=== PATIENT | female | born 1960 | race Caucasian/White ===

== ENCOUNTER 2017-12-13 10:51 | Emergency (ER) | payer BC, OTHER ==
[2017-12-13 12:53] VITALS: BP 118/78
--- NOTE | 2017-12-13 13:07 | UC ---
UC General HPI - HPI Summary HPI Summary: pt is c/o pain in her L low back that goes into her L hip and thigh at times. no injury, saddle anesthesia, abdominal pain or weak extremities. began day after heavy activity. symptoms x 1 day. pt notes recurrent issue for her. - History of Current Complaint Chief Complaint: UCBackPain Stated Complaint: BACK PAIN Time Seen by Provider: 12/13/17 12:49 Hx Obtained From: Patient Onset/Duration: Gradual Onset Onset Severity: Moderate Current Severity: Moderate Pain Intensity: 5 Aggravating: movement Alleviating: lessens with IB Associated Signs & Symptoms: Positive: Back Pain. Negative: Abdominal Pain, Fever, Weakness - Allergy/Home Medications Allergies/Adverse Reactions: Allergies Allergy/AdvReac Type Severity Reaction Status Date / Time cephalexin [From Keflex] Allergy Swelling Verified 12/13/17 12:42 Of Face,Lips,& Throat Penicillins Allergy Unknown Verified 12/13/17 12:42 Reaction Details Home Medications: Home Medications Amphetamine MIXED SALTS TAB* [Adderall TAB*] 30 mg BID 12/13/17 [History Confirmed 12/13/17] Bupropion XL* [Wellbutrin XL *] 300 mg DAILY 12/13/17 [History Confirmed ] FLUoxetine CAP* [Prozac CAP*] 20 mg DAILY 12/13/17 [History Confirmed 12/13/17] LORazepam TAB(*) [Ativan 1 MG TAB (*)] 2 mg DAILY PRN 12/13/17 [History Confirmed 12/13/17] Montelukast Sodium TAB* [Singulair 10 MG TAB*] 10 mg DAILY 12/13/17 [History Confirmed 12/13/17] PMH/Surg Hx/FS Hx/Imm Hx - Additional Past Medical History Additional PMH: ADHD, "mood disorder" - Surgical History Surgical History: Yes Surgery Procedure, Year, and Place: TONSILS AGE 20. right shoulder - Family History Known Family History: Positive: None, Hypertension - Social History Occupation: Unemployed Lives: Alone Alcohol Use: Weekly Alcohol Amount: 1 glass of wine daily Substance Use Type: None Smoking Status (MU): Never Smoked Tobacco Have You Smoked in the Last Year: No - Immunization History Most Recent Influenza Vaccination: Fall 2014 Vaccination Up to Date: Yes Review of Systems Constitutional: Negative Skin: Negative Eyes: Negative ENT: Negative Respiratory: Negative Cardiovascular: Negative Gastrointestinal: Negative Genitourinary: Negative Motor: Negative Neurovascular: Negative Musculoskeletal: Other: - Low back pain Neurological: Negative Psychological: Negative Is Patient Immunocompromised?: No All Other Systems Reviewed And Are Negative: Yes Physical Exam Triage Information Reviewed: Yes Appearance: Well-Appearing Vital Signs: Initial Vital Signs Temp 97.8 F 12/13/17 12:43 Pulse 66 12/13/17 12:43 Resp 16 12/13/17 12:43 BP 118/78 12/13/17 12:43 Pulse Ox 98 12/13/17 12:43 Vital Signs Reviewed: Yes Eyes: Positive: Conjunctiva Clear ENT: Positive: Normal ENT inspection Neck: Positive: Supple, Nontender, No Lymphadenopathy Respiratory: Positive: Lungs clear, Normal breath sounds Cardiovascular: Positive: RRR, No Murmur Abdomen Description: Positive: Nontender, No Organomegaly, Soft Bowel Sounds: Positive: Present Musculoskeletal: Positive: Other: - Back: decreased lordosis in lumbar region. spine non tender. paraspinal mm spasm/tenderness L paraspinal mm lumbar region. ROM intact. s/v/m intact x4 with 5/5 strength and 2+ relfexes x4. no saddle anesthesia. + straight leg raise on L only and L sciatic notch is tender. Neurological: Positive: Alert Psychological: Positive: Age Appropriate Behavior Skin Exam: Normal Course/Dx - Course Course Of Treatment: exam c/w low back spasm and sciatica. no acute abdomen, cauda equina or concern for infection - Differential Dx - Multi-Symptom Provider Diagnoses: Low back pain. sciatica Discharge - Discharge Plan Condition: Stable Disposition: HOME Prescriptions: Cyclobenzaprine TAB* [Flexeril 10 MG TAB*] 10 mg PO TID 3 Days #10 tab Naproxen [Naprosyn] 500 mg PO BID 7 Days #14 tablet Patient Education Materials: Sciatica (ED), Back Pain (ED) Referrals: Araceli Almonte MD [Primary Care Provider] - 5 Days
== END 2017-12-13 13:20 | disposition home or self-care (01) ==
LOC: UCCORT 10:51
DX: M54.5 Low back pain (principal); M54.30 Sciatica, unspecified side; F90.9 Attention-deficit hyperactivity disorder, unspecified type
CPT/HCPCS: 99212; G0463

== ENCOUNTER 2019-10-29 19:22 | Emergency (ER) | payer BC, OTHER ==
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
--- OUTSIDE RECORDS SUMMARY | 2019-10-29 20:01 | XMS REPORT | Summary of Care ---
:1960 Author Organization [facility] Address [address] [facility] [place] [address] Care Team Providers Name Role Phone Santino Myrick [facility] Primary Care Provider Reason for Visit Reason Comments Hip Pain left Encounter Details Date Type Department Care Team Description 09/20/2019 Office Visit [facility] - Angel Chapman, Primary osteoarthritis Nia MILLER of left hip (Primary [address] [place] [address]) [address] [place] [address] [place] [address] [phone] Allergies Active Allergy Reactions Severity Noted Date Comments Keflex Rash 09/05/2019 Penicillins Rash 09/05/2019 documented as of this encounter (statuses as of 10/03/2019) Medications Medication Sig Dispensed Refills Start Date End Date Status Amphetamine-Dextroamphet Take 30 mg by 0 Active amine 30 MG Oral Tab mouth. buPROPion XL (WELLBUTRIN TAKE 3 TABLETS 0 02/26/2019 Active XL) 150 MG Oral TABLET BY MOUTH EVERY SR 24 HR 24 hour tablet DAY IN THE MORNING fluticasone (FLONASE) 50 Myrtle 1 Myrtle in 0 Active MCG/ACT Nasal Suspension nose. [...] THREE Tab TIMES DAILY NEEDED (muscle spasm). documented as of this encounter (statuses as of 10/03/2019) Active Problems Problem Noted Date Primary osteoarthritis of left hip 09/20/2019 documented as of this encounter (statuses as of 10/03/2019) Social History Tobacco Use Types Packs/Day Years [...] Sign Reading Time Taken Comments Blood Pressure - - Pulse - - Temperature - - Respiratory Rate 16 09/20/2019 10:34 AM EST Oxygen Saturation - - Inhaled Oxygen Concentration - - Weight 93.4 kg (206 lb) 09/20/2019 10:34 AM EST Height 171.5 cm (5' 7.5") 09/20/2019 10:34 AM EST Body Mass Index 31.79 09/20/2019 10:34 AM EST documented in this encounter Progress Notes Angel Chapman MD - 09/20/2019 10:30 AM EST PATIENT: Francisca Santana : 1960 DATE OF SERVICE: 09/20/2019 REFERRING PROVIDER: Chelsea Mcgee PCP: Santino Myrick V Chief Complaint Patient presents with Hip Pain left HPI: Francisca Santana is a 59-y.o. female with complaint of left hip pain. The pain is 4/10 at rest, and 10/10 at its worst. The pain has been present for about a year . It is located groin, lateral thigh and buttock . It is worse with weight bearing, stairs and activity. Francisca Santana has tried tylenol, NSAID's and activity modification, these are no longer helping. Physical therapy and/or home exercise not helping . The pain is interfering with daily activities and affecting quality of life. Pain Assessment Location of pain: left hip Symptoms: Locking;Numbness;Tingling;Popping;Throbbing;Aching;Burning;Buckling Timing of Pain: Constant Relieving Factors: Rest;Heat;Other Aggravating Factors: Rising after sitting;Walking;Bending What time of day is your pain worse?: Morning Pain Severity at Rest: 4 Pain Score during activity: 10 Result of Injury: No Allergies Allergen Reactions Keflex Rash Penicillins Rash Current Outpatient Medications Medication Sig Amphetamine-Dextroamphetamine 30 MG Oral Tab Take 30 mg by mouth. buPROPion XL (WELLBUTRIN XL) 150 MG Oral TABLET SR 24 HR 24 hour tablet TAKE 3 TABLETS BY MOUTH EVERY DAY IN THE MORNING cyclobenzaprine (FLEXERIL) 10 MG Oral Tab Take 1 Tab by mouth THREE TIMES DAILY NEEDED (muscle spasm). fluticasone (FLONASE) 50 MCG/ACT Nasal Suspension Myrtle 1 Myrtle in nose. montelukast (SINGULAIR) 10 MG Oral Tab Take 10 mg by mouth. naltrexone (REVIA) 50 MG Oral Tab Take 50 mg by mouth. naproxen (NAPROSYN) 250 MG Oral Tab Take 250 mg by mouth. pseudoephedrine (SUDAFED SA) 120 MG Oral TABLET SR 12 HR Take 120 mg by mouth. tramadol (ULTRAM) 50 MG Oral Tab Take 1 Tab by mouth EVERY SIX HOURS NEEDED (pain). Max Daily Amount: 200 mg. trazodone (DESYREL) 150 MG Oral Tab Take 150 mg by mouth. No current facility-administered medications for this visit. Past Medical History: Diagnosis Date Shoulder fracture Past Surgical History: Procedure Laterality Date CT SHOULDER SURG PROC UNLISTED A comprehensive review of systems was done and negative except for that noted in the HPI Social History Socioeconomic History Marital status: Spouse name: Not on file Number of children: Not on file Years of education: Not on file Highest education level: Not on file Occupational History Not on file Social Needs Financial resource strain: Not on file Food insecurity: Worry: Not on file Inability: Not on file Transportation needs: Medical: Not on file Non-medical: Not on file Tobacco Use Smoking status: Former Smoker Packs/day: 0.00 Smokeless tobacco: Never Used Substance and Sexual Activity Alcohol use: Not on file Drug use: Not on file Sexual activity: Not on file Lifestyle Physical activity: Days per week: Not on file Minutes per session: Not on file Stress: Not on file Relationships Social connections: Talks on phone: Not on file Gets together: Not on file Attends gnosticist service: Not on file Active member of club or organization: Not on file Attends meetings of clubs or organizations: Not on file Relationship status: Not on file Intimate partner violence: Fear of current or ex partner: Not on file Emotionally abused: Not on file Physically abused: Not on file Forced sexual activity: Not on file Other Topics Concern Not on file Social History Narrative Not on file History reviewed. No pertinent family history. Family history is reviewed and unremarkable PHYSICAL EXAMINATION: Resp 16 | Ht 5' 7.5" (1.715 m) | Wt 206 lb (93.4 kg) | BMI 31.79 kg/m Body mass index is 31.79 kg/m. Awake, alert, oriented Bilateral hips: No peritroch tenderness. Pos pain with internal rotation. Pos antalgic gait. Neg trendelenburg. Limb lengths grossly equal. Pos stinchfield. ROM 0-90 flexion, 15 internal rotation, 30 external rotation, 35 abduction, 15adduction, 5/5 DF, 5/5PF, sensate saphenous, sural, deep peroneal, superficial peronea, and plantar nerves + 2 dorsalis pedis and + 2 posterior tibial pulses. No noted lymphedema no pain with range of motion of lumbar spine. Straight leg raise neg . Bilateral knees are free of crepitus. Full range of motion. Patella tracks normally. Ligaments stable. Pain free with range of motion. No swelling. No joint line tenderness..neutral alignement. RADIOLOGIC STUDIES: I Have personally reviewed the Imaging, the report , and reviewed with the patinet, and it shows Left hip with joint space narrowing, near bone on bone , sclerosis, spurring, consistent with Osteoarthritis. No results found for: GLYCO ASSESSMENT: ICD-9-CM ICD-10-CM 1. Primary osteoarthritis of left hip 715.15 M16.12 PLAN: We discussed the natural history of osteoarthritis. She understands that it is a degenarative condition that is likely to worsen and that currently we have no treatments that slow or reverse the course. Conservative options for symptomatic treatment were discussed along with total hip arthroplasty. At this time She is going to continue with symptomatic treatment and call when She is ready for further intervention. Surgical and non surgical options where discussed with the patient, any further conservative therapy would be futile. The risks, benefits, and alternatives of surgery were discussed with the patient. We discussed risks to include, but not be limited to, anesthesia risks, infection, blood clots, nerve and vascular injury, leg length discrepancy, dislocation, need for further procedures, and .The patient would like to proceed with surgery. She wants to wait until summer. She will call to schedule She would like to try a hip injection to get through the winter. Author: Angel Chapman MD 09/20/2019 10:38 Portions of this note were made with voice recognition software documented in this encounter Plan of Treatment Date Type Specialty Care Team Description 11/08/2019 Office Visit Orthopedics Angel Chapman MD [address] [place] [address] [phone] Health Maintenance Due Date Last Done Comments DTaP/Tdap/Td Vaccines (1 - Tdap) 1973 DEPRESSION SCREENING 1974 HIV SCREENING 1977 DIABETES SCREENING 1980 LIPID DISORDER SCREENING 1980 PAP SMEAR 1983 HEPATITIS C SCREENING 2002 MAMMOGRAM (SCREENING) 2002 Colonoscopy 2012 ZOSTER IMMUNIZATION SERIES (1 of 2) 2012 INFLUENZA VACCINE (#1) 2019 HEPATITIS A IMMUNIZATION SERIES Aged Out No longer eligible based on patient's age to complete this topic HPV IMMUNIZATION SERIES Aged Out No longer eligible based on patient's age to complete this topic MENINGOCOCCAL VACCINE IMM Aged Out No longer eligible based on patient's age to complete this topic PNEUMOCOCCAL 0-64 YRS Aged Out No longer eligible based on patient's age to complete this topic documented as of this encounter Results Not on filedocumented in this encounter Visit Diagnoses Diagnosis Primary osteoarthritis of left hip Primary localized osteoarthrosis, pelvic region and thigh documented in this encounter Insurance Payer Benefit Plan / Subscriber ID Effective Dates Phone Address Type Group [employer] xxxxxxxxxxxx 2018-Present [employer] documented as of this encounter
[2019-10-29 20:29] VITALS: BP 123/78
--- NOTE | 2019-10-29 20:51 | UC ---
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 Since then, she has had progressive pain in the left buttock and low back, with increased difficulty walking. All movement causes pain, and she has a sense of muscle weakness on the left. Steps are difficult. She believes that the pain is from muscle spasm; has an appointment with her PMD tomorrow, and upcoming visit with Dr. Salazar. Hx of degenerative spinal arthritis in addition to the above. Had a massage tonight, and pain was worse when she got off of the exam table. She is not regularly using lorazepam, and the time she tried it, it was not effective as a muscle relaxant. No loss of bowel or bladder function. - History Of Current Complaint Chief Complaint: UCLowerExtremity Stated Complaint: LEFT SIDE AND HIP PAIN Time Seen by Provider: 10/29/19 20:30 Hx Obtained From: Patient Onset/Duration: Gradual Onset, Lasting Hours, Lasting Weeks, Worse Since - past 2 days Timing: Constant Severity Initially: Moderate Severity Currently: Moderate Pain Intensity: 10 Location: Diffuse - left low back and gluteal area. Character Of Pain: Aching, Spasmodic, Stiffness Aggravating Factor(s): Movement, Weight Bearing Alleviating Factor(s): Rest Associated Signs And Symptoms: Negative: Fever, Syncope - Risk Factors Septic Arthritis Risk Factor: Negative - Allergies/Home Medications Allergies/Adverse Reactions: Allergies Allergy/AdvReac Type Severity Reaction Status Date / Time cephalexin [From Keflex] Allergy Swelling Verified 10/29/19 20:13 Of Face,Lips,& Throat Penicillins Allergy Unknown Verified 10/29/19 20:13 Reaction Details Home Medications: Home Medications Aspirin/Caffeine [Anacin 400-32 mg Tablet] 1 each PO PRN 10/29/19 [History] Naproxen [Naprosyn] 500 mg PO BID PRN 10/29/19 [History] PMH/Surg Hx/FS Hx/Imm Hx - Additional Past Medical History Additional PMH: degenerative arthritis Psychological History: Depression, Post Traumatic Stress Disorder - Surgical History Surgical History: Yes Surgery Procedure, Year, and Place: TONSILS AGE 20. right shoulder. D&C - Family History Known Family History: Positive: Hypertension, Other - negative for osteoporosis - Social History Occupation: Employed Full-time Alcohol Use: Daily Alcohol Amount: 1 glass of wine daily Substance Use Type: None Smoking Status (MU): Never Smoked Tobacco Have You Smoked in the Last Year: No - Immunization History Most Recent Influenza Vaccination: Fall 2014 Vaccination Up to Date: Yes Review of Systems All Other Systems Reviewed And Are Negative: Yes Constitutional: Positive: Negative Skin: Positive: Negative Eyes: Positive: Negative ENT: Positive: Negative Respiratory: Positive: Negative Cardiovascular: Positive: Negative Gastrointestinal: Positive: Negative Genitourinary: Positive: Negative Motor: Positive: Decreased ROM Neurovascular: Positive: Negative Musculoskeletal: Positive: Arthralgia, Myalgia Neurological: Positive: Negative Psychological: Positive: Negative Is Patient Immunocompromised?: No Physical Exam Triage Information Reviewed: Yes Appearance: Ill-Appearing, Pain Distress - moderate, Obese, Other: - Cane assisted gait, antalgic gait. Vital Signs: Initial Vital Signs Temp 98.3 F 10/29/19 20:18 Pulse 89 10/29/19 20:18 Resp 17 10/29/19 20:18 BP 123/78 10/29/19 20:18 Pulse Ox 97 10/29/19 20:18 ENT: Positive: Normal ENT inspection Respiratory: Positive: Lungs clear, Normal breath sounds Cardiovascular: Positive: RRR, No Murmur Musculoskeletal Exam: Other - TTP in the left buttock Musculoskeletal: Positive: ROM Limited @ - lumbar spine. Exam limited by inability to get to exam table., Other: - SLR in the left leg while seated at 90 degrees is normal. Neurological: Positive: Alert, Muscle Tone Normal Psychological Exam: Other - irritable with exam and with questions. Skin Exam: Normal Hip Injury Course/Dx - Course Course Of Treatment: needs input of her orthopedist. D/C naproxen and try use of meloxicam. Muscle relaxant trial. - Differential Dx/Diagnosis Differential Diagnosis/HQI/PQRI: Bursitis, Sciatica, Sprain, Strain, Other - pelvic fracture. Provider Diagnosis: Left hip pain Discharge ED - Sign-Out/Discharge Documenting (check all that apply): Patient Departure All imaging exams completed and their final reports reviewed: No Studies - Discharge Plan Condition: Stable Disposition: HOME Prescriptions: Cyclobenzaprine TAB* [Flexeril 10 MG TAB*] 10 mg PO BID PRN #20 tab PRN Reason: Spasms - Back Meloxicam [Mobic] 7.5 mg PO BID #30 tablet Patient Education Materials: Hip Pain (ED) Forms: *Work Release Referrals: Rekha Myrick NP [Primary Care Provider] - Additional Instructions: It is most likely that increasing muscle spasm as a result of your arthritis is the cause of worsening pain. Please follow up as arranged with Dr. Salazar and Dr. Myrick. DISCONTINUE use of naproxen and change to meloxicam. This should cause less stomach effect that the naproxen. Use the muscle relaxant at night, but do not use it and drive due to sedation. Off work tomorrow as discussed. - Billing Disposition and Condition Condition: STABLE Disposition: Home
[2019-10-29] MEDS ORDERED: Cyclobenzaprine TAB* 10 MG PO ONE (21:06)
== END 2019-10-29 21:30 | disposition home or self-care (01) ==
LOC: UCCORT 19:22
DX: M25.552 Pain in left hip (principal); M16.12 Unilateral primary osteoarthritis, left hip; M54.5 Low back pain; Z88.0 Allergy status to penicillin; Z88.1 Allergy status to other antibiotic agents; W10.9XXD Fall (on) (from) unspecified stairs and steps, subsequent encounter
CPT/HCPCS: 99212; A9270-GY; G0463